=== PATIENT | female | born 1945 | race Caucasian/White ===

== ENCOUNTER 2023-04-24 20:31 | Inpatient (IN) ==
[2023-04-24] MEDS ORDERED: NS 0.9% 1000 ml BAG 2,000 ML IV ONE (20:45)
[2023-04-24] MEDS ORDERED: fentaNYL 100 mcg/2 ml 50 MCG/ML VIAL IV PRN (20:45)
[2023-04-24 21:13] LABS: ABS Lymphocytes 0.5 10^3/uL (1.0-4.8); ABS Monocytes 0.7 10^3/uL (0.0-0.9); ABS Nucleated RBC 0.01 10^3/ul; Hematocrit 42.8 % (35-45); Hemoglobin 14.3 g/dL (11.5-14.3); Lymphocyte % 4.5 %; Mean Corpuscular Hemoglobin 28.4 pg (27-33); Mean Corpuscular Hgb Conc 33.4 g/dL (31-36); Mean Corpuscular Volume 85.1 fL (80-97); Mean Platelet Volume 9.1 fL (7.5-11.2); Nucleated Red Blood Cells % 0.1 /100 WBC (0.0-0.4); Platelet Count 167 10^3/uL (150-450); Red Blood Count 5.03 10^6/uL (3.63-4.92); Red Cell Distribution Width 13.8 % (12-17); White Blood Count 11.2 10^3/uL (3.8-11.8)
[2023-04-24 21:29] LABS: ALT 33 U/L (7-52); AST 115 U/L (13-39); Albumin 3.9 g/dL (3.2-5.2); Albumin/Globulin Ratio 1.4 (1-3); Alkaline Phosphatase 105 U/L (35-149); Anion Gap 9 mmol/L (2-16); Blood Urea Nitrogen 40 mg/dL (6-24); CO2 Carbon Dioxide 25 mmol/L (22-32); Calcium 10.3 mg/dL (8.6-10.3); Chloride 106 mmol/L (101-111); Creatinine, Serum 0.65 mg/dL (0.51-0.95); Globulin 2.8 g/dL (2-4); Glucose 112 mg/dL (70-100); Potassium 4.1 mmol/L (3.5-5.0); Sodium 140 mmol/L (135-145); Total Protein 6.7 g/dL (6.4-8.9); eGFR CKD-EPI 89.5 (>60)
[2023-04-24] MEDS ORDERED: Iohexol 350 (CONTRAST) 500 ML MDV IV ONE (21:41)
[2023-04-24 21:47] LABS: Alcohol, S < 13 mg/dL (<13)
[2023-04-25 01:07] LABS: Urine Appearance Turbid; Urine Bilirubin Negative (Negative); Urine Blood 1+ (Negative); Urine Color Amber; Urine Glucose Negative (Negative); Urine Ketones Trace (Negative); Urine Nitrite Negative (Negative); Urine Protein 2+(100 mg/dL) (Negative); Urine Specific Gravity 1.038 (1.002-1.030); Urine Urobilinogen Negative (Negative)
[2023-04-25 01:10] LABS: Urine Amorphous Crystals Present (Absent); Urine Bacteria 1+ (Absent); Urine Red Blood Cell 2+(6-10/hpf) (Absent); Urine White Blood Cell 2+(11-20/hpf) (Absent); Urine Yeast Present (Absent)
[2023-04-25 01:40] LABS: Creatine Kinase 4643 U/L (10-223)
[2023-04-25] MEDS ORDERED: cefTRIAXone 1 gm/50 mL D5W 1 GM/50 ML BAG IV ONE (06:32)
[2023-04-25] MEDS: NS 0.9% 1000 ml BAG 1,000 ML IV SCH (13:25)
[2023-04-25 16:04] LABS: Calcium 9.8 mg/dL (8.6-10.3); Creatinine, Serum 0.66 mg/dL (0.51-0.95); Potassium 3.7 mmol/L (3.5-5.0); eGFR CKD-EPI 89.2 (>60)
[2023-04-25 16:17] LABS: TSH Ultra Thyroid Stim Horm 1.87 mcIU/mL (0.34-5.60)
[2023-04-25] MEDS: Enoxaparin 40 MG/0.4 ML SYR SUBCUT SCH (20:05)
[2023-04-26] MEDS: NS 0.9% 1000 ml BAG 1,000 ML IV SCH (00:20)
[2023-04-26 08:06] LABS: ABS Lymphocytes 0.8 10^3/uL (1.0-4.8); ABS Monocytes 0.6 10^3/uL (0.0-0.9); ABS Nucleated RBC 0.01 10^3/ul; Hematocrit 35.7 % (35-45); Hemoglobin 12.1 g/dL (11.5-14.3); Mean Corpuscular Hemoglobin 29.1 pg (27-33); Mean Corpuscular Hgb Conc 33.8 g/dL (31-36); Mean Corpuscular Volume 85.9 fL (80-97); Mean Platelet Volume 9.2 fL (7.5-11.2); Nucleated Red Blood Cells % 0.1 /100 WBC (0.0-0.4); Platelet Count 129 10^3/uL (150-450); Red Blood Count 4.16 10^6/uL (3.63-4.92); Red Cell Distribution Width 13.8 % (12-17); White Blood Count 6.4 10^3/uL (3.8-11.8)
[2023-04-26] MEDS: Acetaminophen IV 1 GM/100ML 1,000 MG/100 ML BAG IV SCH ×2 (10:00→21:19)
[2023-04-26] MEDS: cefTRIAXone 1 gm/50 mL D5W 1 GM/50 ML BAG IV SCH (12:18)
[2023-04-26] MEDS: Enoxaparin 40 MG/0.4 ML SYR SUBCUT SCH (21:27)
[2023-04-26] MEDS ORDERED: Lidocaine PATCH 5% PATCH TRANSDERM ONE (22:29)
[2023-04-27 06:42] LABS: Albumin 3.2 g/dL (3.2-5.2); Albumin/Globulin Ratio 1.2 (1-3); Calcium 9.3 mg/dL (8.6-10.3); Creatinine, Serum 0.55 mg/dL (0.51-0.95); Globulin 2.6 g/dL (2-4); Potassium 3.7 mmol/L (3.5-5.0); Total Bilirubin 0.7 mg/dL (0.2-1.0); Total Protein 5.8 g/dL (6.4-8.9); eGFR CKD-EPI 93.2 (>60)
[2023-04-27] MEDS: Acetaminophen IV 1 GM/100ML 1,000 MG/100 ML BAG IV SCH ×2 (09:01→20:06)
[2023-04-27] MEDS: cefTRIAXone 1 gm/50 mL D5W 1 GM/50 ML BAG IV SCH (11:34)
[2023-04-27] MEDS: Morphine 2 MG/ML SYRINGE IV PRN (19:51)
[2023-04-27] MEDS: Enoxaparin 40 MG/0.4 ML SYR SUBCUT SCH (20:01)
[2023-04-28] MEDS: Morphine 2 MG/ML SYRINGE IV PRN ×3 (06:16→21:16)
[2023-04-28] MEDS: Acetaminophen IV 1 GM/100ML 1,000 MG/100 ML BAG IV SCH ×2 (08:26→21:23)
[2023-04-28] MEDS: Lidocaine 4% TOPICAL 50 ML TOP.SOLN TOPICAL ONE ×2 (12:31→17:18)
[2023-04-28] MEDS: cefTRIAXone 1 gm/50 mL D5W 1 GM/50 ML BAG IV SCH (12:31)
[2023-04-28] MEDS: Enoxaparin 40 MG/0.4 ML SYR SUBCUT SCH (21:15)
[2023-04-29] MEDS: Morphine 2 MG/ML SYRINGE IV PRN (08:03)
[2023-04-29] MEDS: Acetaminophen IV 1 GM/100ML 1,000 MG/100 ML BAG IV SCH ×2 (08:58→22:38)
[2023-04-29] MEDS: cefTRIAXone 1 gm/50 mL D5W 1 GM/50 ML BAG IV SCH (15:13)
[2023-04-29] MEDS: Enoxaparin 40 MG/0.4 ML SYR SUBCUT SCH (22:38)
[2023-04-30] MEDS ORDERED: Magnesium Hydroxide LIQ 30 ML UDC PO PRN (08:33)
[2023-04-30] MEDS ORDERED: Senna TAB 8.6 mg TAB PO PRN (08:33)
[2023-04-30] MEDS ORDERED: Polyethylene Glycol 3350 17 GM PACKET PO PRN (08:33)
[2023-04-30 09:11] LABS: ABS Lymphocytes 1.4 10^3/uL (1.0-4.8); ABS Monocytes 0.6 10^3/uL (0.0-0.9); Eosinophil % 0.7 %; Hematocrit 37.1 % (35-45); Hemoglobin 12.7 g/dL (11.5-14.3); Lymphocyte % 22.5 %; Mean Corpuscular Hemoglobin 28.7 pg (27-33); Mean Corpuscular Hgb Conc 34.2 g/dL (31-36); Mean Platelet Volume 8.1 fL (7.5-11.2); Nucleated Red Blood Cells % 0.1 /100 WBC (0.0-0.4); Platelet Count 176 10^3/uL (150-450); Red Blood Count 4.42 10^6/uL (3.63-4.92); Red Cell Distribution Width 13.5 % (12-17)
[2023-04-30 09:30] LABS: Albumin 3.2 g/dL (3.2-5.2); Albumin/Globulin Ratio 1.3 (1-3); Calcium 9.5 mg/dL (8.6-10.3); Creatinine, Serum 0.61 mg/dL (0.51-0.95); Globulin 2.5 g/dL (2-4); Potassium 3.9 mmol/L (3.5-5.0); Total Bilirubin 0.6 mg/dL (0.2-1.0); Total Protein 5.7 g/dL (6.4-8.9); eGFR CKD-EPI 90.9 (>60)
[2023-04-30] MEDS: Magnesium Hydroxide LIQ 30 ML UDC PO SCH ×2 (09:34→20:15)
[2023-04-30] MEDS: Lidocaine PATCH 5% PATCH TRANSDERM SCH (09:35)
[2023-04-30] MEDS: cefTRIAXone 1 gm/50 mL D5W 1 GM/50 ML BAG IV SCH (15:12)
[2023-04-30] MEDS: Enoxaparin 40 MG/0.4 ML SYR SUBCUT SCH (20:12)
[2023-05-01] MEDS: Lidocaine PATCH 5% PATCH TRANSDERM SCH (09:14)
[2023-05-01] MEDS: Magnesium Hydroxide LIQ 30 ML UDC PO SCH ×2 (09:25→22:41)
[2023-05-01] MEDS: Enoxaparin 40 MG/0.4 ML SYR SUBCUT SCH (22:41)
[2023-05-02] MEDS: Lidocaine PATCH 5% PATCH TRANSDERM SCH (08:49)
[2023-05-02] MEDS: Magnesium Hydroxide LIQ 30 ML UDC PO SCH ×2 (08:49→20:24)
[2023-05-02] MEDS: Enoxaparin 40 MG/0.4 ML SYR SUBCUT SCH (20:16)
[2023-05-03] MEDS: Lidocaine PATCH 5% PATCH TRANSDERM SCH (09:22)
[2023-05-03] MEDS: Magnesium Hydroxide LIQ 30 ML UDC PO SCH (09:22)
[2023-05-03 13:39] VITALS: BP 117/63
== END 2023-05-03 13:45 | DRG 558 ==
LOC: ED 20:31 → SUATTDRO 04-25 07:10 → EDHOLD 04-25 07:10 → MEDTELE 04-25 14:03
PROVIDERS: ADMIT Hospitalist; ATTEND Internal Medicine